=== PATIENT | female | born 1960 | race Two or more races ===

== ENCOUNTER 2017-11-11 20:08 | Emergency (ER) | payer BC ==
[~2017-11-11] VITALS: Ht 162.6 cm; Wt 69.9 kg
--- NOTE | 2017-11-11 20:20 | NUR ---
DR. MALIN @ BS. PT WAS BIB BY C/O BLACK STOOL AFTER BM. PT STS THAT HE STARTED TAKING PRADAXA FOR AFIB. STABLE SKIN WARM & DRY, VSS, NO ACTIVE RECTAL BLEEDING @ THIS TIME.
[2017-11-11] MEDS ORDERED: PANTOPRAZOLE 40 MG VIAL ONE (20:47)
[2017-11-11 20:49] LABS: BASOPHILS % (AUTO) 0.7 % (0.0-2.0); EOSINOPHILS % (AUTO) 3.4 % (0.0-6.0); HEMATOCRIT 41 % (33-45); LYMPHOCYTES # (AUTO) 2.5 /CMM (0.8-4.8); LYMPHOCYTES % (AUTO) 56.4 % (20.0-44.0); MEAN CORPUSCULAR HEMOGLOBIN 27 PG (26.0-33.0); MEAN CORPUSCULAR HGB CONC 34 g/dl (31.0-36.0); MEAN CORPUSCULAR VOLUME 80 fL (82-100); MONOCYTES # (AUTO) 0.4 /CMM (0.1-1.30); MONOCYTES % (AUTO) 8.9 % (2.0-12.0); NEUTROPHILS # (AUTO) 1.3 /CMM (1.8-8.9); NEUTROPHILS % (AUTO) 30.6 % (43.0-81.0); PLATELET COUNT (AUTO) 309 /CMM (150-450); RDW COEFFICIENT OF VARIATION 12.9 (11.5-15.0); RED BLOOD CELL COUNT(AUTO) 5.14 MIL/uL (4.0-5.2); WHITE BLOOD COUNT (AUTO) 4.3 K/uL (4.3-11.0)
[2017-11-11] MEDS ORDERED: PANTOPRAZOLE 80 MG in IV NS 0.9% 500 ML IV ONE (21:00)
--- NOTE | 2017-11-11 21:02 | NUR ---
STARTED WITH 80 MG OF PROTONIX IV PER MD. IV INFUSING WELL, NO S/S OF SWELLING/REDNESS/INFILTRATION NOTED ON IV SITE. PT RESTING COMFORTABLY, NAD NOTED & @ BS.
[2017-11-11 21:04] LABS: ALBUMIN 3.8 g/dL (3.4-5.0); BILIRUBIN,DIRECT 0.1 mg/dL (0.0-0.2); BILIRUBIN,TOTAL 0.3 mg/dL (0.2-1.0); CALCIUM, SERUM 9.6 mg/dL (8.5-10.1); CREATININE 0.8 mg/dL (0.6-1.3); INR 0.98 (0.85-1.15); TOTAL PROTEIN, SERUM 7.7 g/dL (6.4-8.2)
--- NOTE | 2017-11-11 21:33 | NUR ---
ERMELINDA'Wilson PROTONIX PER DR. HUTCHINSON'S ORDER, CONVERTED TO SALINE LOCK.
[2017-11-11 21:55] VITALS: BP 110/70
--- NOTE | 2017-11-11 21:55 | NUR ---
IV removed. Catheter intact and site benign. Pressure and 4x4 applied to site. No bleeding noted.
--- NOTE | 2017-11-11 21:58 | NUR ---
ACI GIVEN TO PT , NAD NOTED & AMB W/ STEADY GAIT UPON LEAVING ED
== END 2017-11-11 21:59 | disposition home or self-care (01) ==
LOC: ER 20:11
DX: R19.5 Other fecal abnormalities (principal); R10.13 Epigastric pain; I48.91 Unspecified atrial fibrillation
CPT/HCPCS: 36415; 80048-TC; 80076-TC; 85025-TC; 85610-TC; 86850-TC; A4606; C9113; J7040; Z7610

== ENCOUNTER 2023-06-27 08:48 | Emergency (ER) | payer BC ==
[~2023-06-27] VITALS: Ht 162.6 cm; Wt 63.5 kg
[2023-06-27 09:48] LABS: BASOPHILS % (AUTO) 0.8 % (0.0-2.0); EOSINOPHILS # (AUTO) 0.1 K/uL (0.0-0.7); EOSINOPHILS % (AUTO) 4.7 % (0.0-6.0); HEMATOCRIT 40 % (33-45); LYMPHOCYTES # (AUTO) 1.5 K/uL (0.8-4.8); LYMPHOCYTES % (AUTO) 48.9 % (20.0-44.0); MEAN CORPUSCULAR HEMOGLOBIN 26 PG (26.0-33.0); MEAN CORPUSCULAR HGB CONC 33 g/dl (31.0-36.0); MEAN CORPUSCULAR VOLUME 80 fL (82-100); MONOCYTES # (AUTO) 0.2 K/uL (0.1-1.30); MONOCYTES % (AUTO) 7.7 % (2.0-12.0); NEUTROPHILS # (AUTO) 1.2 K/uL (1.8-8.9); NEUTROPHILS % (AUTO) 37.9 % (43.0-81.0); PLATELET COUNT (AUTO) 335 K/uL (150-450); RED BLOOD CELL COUNT(AUTO) 5.01 MIL/uL (4.0-5.2); RED CELL DISTRIBUTION WIDTH 14.3 % (11.5-15.0)
[2023-06-27 10:00] LABS: CALCIUM, SERUM 9.1 mg/dL (8.5-10.1); CARBON DIOXIDE 30 mmol/L (21-32); CHLORIDE 102 mmol/L (98-107); CREATININE 0.7 mg/dL (0.6-1.3); GLUCOSE 123 mg/dL (74-106); POTASSIUM 3.8 mmol/L (3.5-5.1); SODIUM SERUM 138 mmol/L (136-145); UREA NITROGEN, BLOOD 13 mg/dL (7-18)
[2023-06-27 10:06] LABS: ALANINE AMINOTRANSFERASE 18 U/L (12-78); ALBUMIN 3.4 g/dL (3.4-5.0); ALKALINE PHOSPHATASE 67 U/L (46-116); ASPARTATE AMINOTRANSFERASE 25 U/L (15-37); BILIRUBIN,DIRECT 0.1 mg/dL (0.0-0.2); BILIRUBIN,TOTAL 0.4 mg/dL (0.2-1.0); TOTAL PROTEIN, SERUM 7.3 g/dL (6.4-8.2)
[2023-06-27 10:11] LABS: THYROID STIMULATING HORMONE 4.203 uIU/mL (0.358-3.74)
[2023-06-27] MEDS: FAMOTIDINE/PF INJ 20 MG/2 ML VIAL IV ONE (10:23)
[2023-06-27] MEDS: ONDANSETRON HCL/PF 4 MG/2 ML VIAL IV ONE (10:23)
[2023-06-27] MEDS: IV NS 0.9% 1,000 ML BAG IV ONE (10:23)
[2023-06-27] MEDS: MAG HYDROX/AL HYDROX/SIMETH 30 ML UDC PO ONE (10:30)
[2023-06-27] MEDS: LIDOCAINE VISCOUS 2% UD 15 ML UDC MM ONE (10:30)
[2023-06-27] MEDS: FAMOTIDINE (20 MG) 20 MG TABLET PO ONE (10:32)
[2023-06-27] MEDS ORDERED: FAMOTIDINE (20 MG) 20 MG TABLET ONE (10:34)
[2023-06-27] MEDS ORDERED: LIDOCAINE VISCOUS 2% UD 15 ML UDC ONE (10:34)
[2023-06-27] MEDS ORDERED: MAG HYDROX/AL HYDROX/SIMETH 30 ML UDC ONE (10:34)
[2023-06-27] MEDS ORDERED: ONDANSETRON 4 MG TAB.RAPDIS ONE (10:35)
[2023-06-27] MEDS: ONDANSETRON 4 MG TAB.RAPDIS SL ONE (10:35)
[2023-06-27] MEDS ORDERED: ONDA4TAB5 PO (11:14)
[2023-06-27] MEDS ORDERED: FAMO-131 PO (11:14)
[2023-06-27] MEDS ORDERED: LIDO30AD10 TP (11:14)
[2023-06-27] MEDS ORDERED: NAPR-1009 PO (11:14)
[2023-06-27 11:47] VITALS: BP 121/81; TEMP 98.6; O2SAT 100
== END 2023-06-27 11:47 | disposition home or self-care (01) ==
LOC: ER 08:56
DX: M54.6 Pain in thoracic spine (principal); R10.13 Epigastric pain; R11.0 Nausea; I10 Essential (primary) hypertension; I48.91 Unspecified atrial fibrillation; E03.9 Hypothyroidism, unspecified; Z85.3 Personal history of malignant neoplasm of breast
CPT/HCPCS: 99285; 72128; 71045; 93005; 85025; 80048; 83690; 80076; 36415; 84443; 84484; Q0162